=== PATIENT | male | born 1955 | race Caucasian/White ===

== ENCOUNTER 2024-02-18 13:53 | Emergency (ER) | payer OTHER ==
[~2024-02-18] VITALS: Ht 165.1 cm; Wt 87.3 kg
[2024-02-18 13:58] VITALS: BP 170/100; PULSE 82; RESP 18; TEMP 97.5; O2SAT 97
[2024-02-18 14:50] VITALS: BP 157/94; PULSE 67; RESP 20; O2SAT 98
== END 2024-02-18 14:50 | disposition home or self-care (01) ==
LOC: MED 13:53
DX: I10 Essential (primary) hypertension (principal); E11.9 Type 2 diabetes mellitus without complications
CPT/HCPCS: 93005; 99283